=== PATIENT | male | born 1970 | race Caucasian/White ===

== ENCOUNTER 2016-10-30 17:54 | Emergency (ER) | payer MEDICAID, OTHER ==
[~2016-10-30] VITALS: Ht 177.8 cm; Wt 89.0 kg
[~2016-10-30 17:54] MED LIST: GABA-531 PO; HYDR-305 PO; LISI-662 PO
[2016-10-30] MEDS ORDERED: KETOROLAC TROMETHAMINE 60 MG/2 ML VIAL IM ONE (21:15)
[2016-10-30] MEDS ORDERED: METHOCARBAMOL 500 MG TABLET PO ONE (21:15)
[2016-10-30 22:34] VITALS: BP 125/85
== END 2016-10-30 22:36 | disposition home or self-care (01) ==
LOC: EMS 17:56
DX: S39.012A Strain of muscle, fascia and tendon of lower back, initial encounter (principal); G89.29 Other chronic pain; I10 Essential (primary) hypertension; Z88.5 Allergy status to narcotic agent; W18.40XA Slipping, tripping and stumbling without falling, unspecified, initial encounter; Y93.89 Activity, other specified; Y92.89 Other specified places as the place of occurrence of the external cause; Y99.8 Other external cause status
CPT/HCPCS: 96372; 99283; J1885

== ENCOUNTER 2016-12-18 21:05 | Emergency (ER) | payer MEDICAID ==
[~2016-12-18] VITALS: Ht 177.8 cm; Wt 86.4 kg
[2016-12-19] MEDS ORDERED: DEXAMETHASONE SOD PHOS 4 MG/ML 5 ML VIAL IM ONE (00:30)
[2016-12-19] MEDS ORDERED: DiphenhydrAMINE HCL 25 MG CAPSULE PO ONE (00:30)
[2016-12-19 00:49] VITALS: BP 131/77
== END 2016-12-19 00:51 | disposition home or self-care (01) ==
LOC: EMS 21:10
DX: L25.9 Unspecified contact dermatitis, unspecified cause (principal); I10 Essential (primary) hypertension; Z88.5 Allergy status to narcotic agent
CPT/HCPCS: 96372; 99283; J1100

== ENCOUNTER 2017-02-11 13:50 | Emergency (ER) | payer MEDICAID ==
[~2017-02-11] VITALS: Ht 177.8 cm; Wt 86.0 kg
[~2017-02-11 13:50] MED LIST changes: -GABA-531 PO; -HYDR-305 PO
[2017-02-11] MEDS ORDERED: GABA-531 PO (13:55)
[2017-02-11] MEDS ORDERED: IBUPROFEN 800 MG TABLET PO ONE (15:15)
[2017-02-11] MEDS ORDERED: GABAPENTIN 300 MG CAPSULE PO ONE (15:15)
[2017-02-11 15:53] VITALS: BP 144/87
== END 2017-02-11 15:56 | disposition home or self-care (01) ==
LOC: EMS 13:51
DX: M54.5 Low back pain (principal); I10 Essential (primary) hypertension; Z76.0 Encounter for issue of repeat prescription; Z88.5 Allergy status to narcotic agent
CPT/HCPCS: 99283

== ENCOUNTER 2017-03-10 12:21 | Emergency (ER) | payer MEDICAID ==
[~2017-03-10] VITALS: Ht 177.8 cm; Wt 88.6 kg
[~2017-03-10 12:21] MED LIST changes: +GABA-531 PO
[2017-03-10] MEDS ORDERED: IBUPROFEN 800 MG TABLET PO ONE (14:45)
[2017-03-10 15:28] VITALS: BP 138/84
[2017-03-10] MEDS ORDERED: HYDROCODONE/ACETAMINOPHEN 5-325 MG TABLET PO ONE (16:15)
== END 2017-03-10 16:24 | disposition home or self-care (01) ==
LOC: EMS 12:24
DX: S93.401A Sprain of unspecified ligament of right ankle, initial encounter (principal); I10 Essential (primary) hypertension; Z88.5 Allergy status to narcotic agent; X58.XXXA Exposure to other specified factors, initial encounter; Y93.39 Activity, other involving climbing, rappelling and jumping off; Y92.89 Other specified places as the place of occurrence of the external cause; Y99.8 Other external cause status
CPT/HCPCS: 99284